=== PATIENT | female | born 1995 | race Caucasian/White ===

== ENCOUNTER 2017-10-02 18:27 | Emergency (ER) | payer BC ==
[2016-09-16 12:38] VITALS: Ht 170.2 cm; Wt 65.8 kg
[~2017-10-02] VITALS: Ht 170.2 cm; Wt 65.8 kg
[~2017-10-02 18:27] MED LIST: ACET-1718 PO; ACET-1966 PO; ACET-3017 PO; ARIP15TA9 PO; BENZ9GEL5 DT; BUPR-474 PO; CALC-521 PO; CEPH-13 PO; CHOL10005 PO; CITA-156 PO; CITA-157 PO; CLON-327 PO; CLON1PAT19 TD; DIPH-740 PO; DOCU-416 PO; FIRST AID ANT28.4 G1 TP; FLUO-202 PO; HYDR-4309 PO; HYDR25CA83 PO; HYDR50CA47 PO; IBUP-56 PO; IBUP200C74 PO; IBUP400T13 PO; IBUP600T22 PO; IBUP800T37 PO; KET10 PO; LAMO200T45 PO; LIOT25TA19 PO; LOR5/325 PO; MULT-1379 PO; NEOM28OI14 TP; NITR-105 PO; NO HOME MEDS; OMEG-11 PO; OMEG10007; ONDA4TAB PO; ONDA4TAB97 PO; PREN-127 PO; PROM-110 PO; RANI-325 PO; TRAZ-156 PO; VALA500T66 PO; [UNRECOGNIZED DRUG - REMARK] PO
--- NOTE | 2017-10-02 18:37 | ER Report ---
History and Physical Time Seen By MD: 18:37 HPI/ROS CHIEF COMPLAINT: 25 weeks , vomiting HISTORY OF PRESENT ILLNESS: 21-year-old female patient presents to emergency room with complaint of vomiting. Patient states she is currently 25 weeks . She denies getting any care during the . Patient states that she has been vomiting all day today, she does have some discomfort in the abdomen. She states that she has not taken any medication for this. Patient states that she has not seen an frame stripper as she has been traveling between [facility]. Patient states that she did have an ultrasound done at 15 weeks but has not heard the results of has not followed up with the provider who performed it. She states that she has been sexually active with multiple partners, for the last 2 months. She states that she never uses protection. She states that she is also been having burning with urination. She denies having any fevers, chills, diarrhea. REVIEW OF SYSTEMS: Respiratory: No cough, no dyspnea. Cardiovascular: No chest pain, no palpitations. Gastrointestinal: As noted above Musculoskeletal: No back pain. Allergies: Coded Allergies: No Known Drug Allergies (Unverified , 10/02/17) Home Meds Active Scripts Promethazine Hcl (PROMETHAZINE HCL) 25 Mg Tablet, 25 MG PO Q8H Y for NAUSEA/ VOMITING, #12 TAB Prov:SARIKA MARIOP 10/02/17 Promethazine Hcl (PROMETHAZINE HCL) 25 Mg Supp.rect, 25 MG RC Q8H, #12 SUPP.RECT Prov:SARIKA MARIO [facility] 10/02/17 Nitrofurantoin Macrocrystal (NITROFURANTOIN) 100 Mg Capsule, 100 MG PO BID, #12 CAPSULE Prov:SARIKA MARIOP 10/02/17 Ondansetron (ZOFRAN ODT) 4 Mg Tab.rapdis, 4 MG PO Q6H Y for NAUSEA/VOMITING, # 20 TAB.LADI Prov:SARIKA MARIO [facility] 10/02/17 Discontinued Reported Medications [place]-3 Fatty Acids/Fish Oil (FISH OIL 1,000 MG CAPSULE) 1 Each Capsule, 1 EACH PO DAILY, CAPSULE 01/06/17 Cholecalciferol (Vitamin D3) (VITAMIN D3) 1,000 Unit Tablet, 1000 UNIT PO QDAY, TAB 01/06/17 Multivits,Th W-Fe,Other Min (THERA-M) 1 Each Tablet, 1 EACH PO QDAY 01/06/17 Hydroxyzine Pamoate (VISTARIL) 25 Mg Capsule, 25-50 MG PO Q12H Y for ANXIETY/ INSOMNIA, CAPSULE 01/06/17 Bupropion Hcl (WELLBUTRIN XL) 300 Mg Tab.er.24h, 300 MG PO QAM, TAB 01/06/17 Past Medical/Surgical History Patient has a past medical history of migraines, reflux, ankle fracture, wrist fracture, meth abuse, marijuana abuse, alcohol abuse, depression, suicidal ideation. Patient has a surgical history of tonsillectomy, cholecystectomy, appendectomy. Patient has a family medical history of cancer, stroke, diabetes. Reviewed Nurses Notes: Yes Hx Smoking: Yes Smoking Status: Current: Every Day Smoker Exposure to Second Hand Smoke?: No Hx Substance Use Disorder: Yes Hx Alcohol Use: Yes Constitutional Vital Sign - Last 24 Hours 10/02/17 10/02/17 10/02/17 10/02/17 18:34 18:36 18:57 19:00 Pulse 107 118 Resp 18 B/P (MAP) 127/81 127/81 (96) 107/71 (83) Pulse Ox 98 94 O2 Delivery Room Air 10/02/17 10/02/17 10/02/17 10/02/17 19:27 19:30 19:57 20:30 Pulse 117 95 B/P (MAP) 114/79 (91) 106/81 (89) Pulse Ox 96 100 97 10/02/17 21:00 Pulse 93 B/P (MAP) 106/72 (83) Pulse Ox 98 Physical Exam General Appearance: The patient is alert, has no immediate need for airway protection and no current signs of toxicity. ENT: Tympanic membranes are pearly-coffey, auditory canals are patent, mucous membranes are moist. Respiratory: Chest is non tender, lungs are clear to auscultation. Cardiac: regular rate and rhythm Gastrointestinal: Abdomen is soft and non tender, no masses, bowel sounds normal. Musculoskeletal: Neck: Neck is supple and non tender. Extremities have full range of motion and are non tender. Skin: No rashes or lesions. DIFFERENTIAL DIAGNOSIS: After history and physical exam differential diagnosis was considered for urinary tract infection, vomiting, gastroenteritis, pyelonephritis. Medical Decision Making Data Points Result Diagram: 2/06/09 [id number] Laboratory Hematology Test 10/02/17 18:40 10/02/17 18:41 10/02/17 21:06 Red Blood Count 4.77 M/uL (4.17-5.56) Mean Corpuscular Volume 86.1 fL (80.0-96.0) Mean Corpuscular Hemoglobin 29.4 pg (26.0-33.0) Mean Corpuscular Hemoglobin Concent 34.1 g/dL (32.0-36.0) Red Cell Distribution Width 14.0 % (11.5-14.5) Mean Platelet Volume 8.0 fL (7.2-11.1) Neutrophils (%) (Auto) 81.9 % (39.4-72.5) Lymphocytes (%) (Auto) 12.3 % (17.6-49.6) Monocytes (%) (Auto) 5.3 % (4.1-12.4) Eosinophils (%) (Auto) 0.3 % (0.4-6.7) Basophils (%) (Auto) 0.2 % (0.3-1.4) Nucleated RBC Relative Count (auto) 0.0 /100WBC Neutrophils # (Auto) 8.0 K/uL (2.0-7.4) Lymphocytes # (Auto) 1.2 K/uL (1.3-3.6) Monocytes # (Auto) 0.5 K/uL (0.3-1.0) Eosinophils # (Auto) 0.0 K/uL (0.0-0.5) Basophils # (Auto) 0.0 K/uL (0.0-0.1) Nucleated RBC Absolute Count (auto) 0.00 K/uL Sodium Level 137 mmol/L (137-145) Potassium Level 3.4 mmol/L (3.5-5.0) Chloride Level 102 mmol/L (98-107) Carbon Dioxide Level 21 mmol/L (22-31) Blood Urea Nitrogen 12 mg/dl (7-18) Creatinine 0.60 mg/dl (0.52-1.04) Glomerular Filtration Rate Calc > 60.0 Random Glucose 82 mg/dl (75-110) Calcium Level 9.1 mg/dl (8.4-10.2) Total Bilirubin 1.5 mg/dl (0.2-1.3) Aspartate Amino Transf (AST/SGOT) 17 U/L (0-35) Alanine Aminotransferase (ALT/SGPT) 27 U/L (0-56) Alkaline Phosphatase 82 U/L (0-126) Total Protein 7.8 gm/dl (6.3-8.2) Albumin 4.1 g/dl (3.5-5.0) HIV (1&2) Antibody Negative (NEGATIVE) Urine Opiates Screen Negative Urine Barbiturates Screen Negative Ur Tricyclic Antidepressants Screen Negative Urine Phencyclidine Screen Negative Urine Amphetamines Screen Positive Urine Benzodiazepines Screen Negative Urine Cocaine Screen Negative Urine Cannabinoids Screen Positive Urine Color Colorless Urine Clarity Clear Urine pH 6.5 pH (4.8-9.5) Urine Specific [place] 1.005 Urine Protein Negative mg/dL (NEGATIVE) Urine Glucose (UA) Negative mg/dL (NEGATIVE) Urine Ketones 40 mg/dL (NEGATIVE) Urine Blood Trace lysed (NEGATIVE) Urine Nitrite Negative (NEGATIVE) Urine Bilirubin Negative (NEGATIVE) Urine Urobilinogen Negative mg/dL (0.2-1.9) Urine Leukocyte Esterase Moderate (NEGATIVE) Urine RBC None /HPF (0-2/HPF) Urine WBC 0-5 /HPF (0-5/HPF) Urine Squamous Epithelial Cells Moderate /LPF (</=FEW) Urine Bacteria Negative /HPF (NONE-FEW) Urine Mucus None /HPF (NONE-FEW) Chemistry Test 10/02/17 18:40 10/02/17 18:41 10/02/17 21:06 White Blood Count 9.8 k/uL (4.5-11.0) Red Blood Count 4.77 M/uL (4.17-5.56) Hemoglobin 14.0 g/dL (12.0-16.0) Hematocrit 41.1 % (34.0-47.0) Mean Corpuscular Volume 86.1 fL (80.0-96.0) Mean Corpuscular Hemoglobin 29.4 pg (26.0-33.0) Mean Corpuscular Hemoglobin Concent 34.1 g/dL (32.0-36.0) Red Cell Distribution Width 14.0 % (11.5-14.5) Platelet Count 210 K/uL (150-450) Mean Platelet Volume 8.0 fL (7.2-11.1) Neutrophils (%) (Auto) 81.9 % (39.4-72.5) Lymphocytes (%) (Auto) 12.3 % (17.6-49.6) Monocytes (%) (Auto) 5.3 % (4.1-12.4) Eosinophils (%) (Auto) 0.3 % (0.4-6.7) Basophils (%) (Auto) 0.2 % (0.3-1.4) Nucleated RBC Relative Count (auto) 0.0 /100WBC Neutrophils # (Auto) 8.0 K/uL (2.0-7.4) Lymphocytes # (Auto) 1.2 K/uL (1.3-3.6) Monocytes # (Auto) 0.5 K/uL (0.3-1.0) Eosinophils # (Auto) 0.0 K/uL (0.0-0.5) Basophils # (Auto) 0.0 K/uL (0.0-0.1) Nucleated RBC Absolute Count (auto) 0.00 K/uL Glomerular Filtration Rate Calc > 60.0 Calcium Level 9.1 mg/dl (8.4-10.2) Total Bilirubin 1.5 mg/dl (0.2-1.3) Aspartate Amino Transf (AST/SGOT) 17 U/L (0-35) Alanine Aminotransferase (ALT/SGPT) 27 U/L (0-56) Alkaline Phosphatase 82 U/L (0-126) Total Protein 7.8 gm/dl (6.3-8.2) Albumin 4.1 g/dl (3.5-5.0) HIV (1&2) Antibody Negative (NEGATIVE) Urine Opiates Screen Negative Urine Barbiturates Screen Negative Ur Tricyclic Antidepressants Screen Negative Urine Phencyclidine Screen Negative Urine Amphetamines Screen Positive Urine Benzodiazepines Screen Negative Urine Cocaine Screen Negative Urine Cannabinoids Screen Positive Urine Color Colorless Urine Clarity Clear Urine pH 6.5 pH (4.8-9.5) Urine Specific [place] 1.005 Urine Protein Negative mg/dL (NEGATIVE) Urine Glucose (UA) Negative mg/dL (NEGATIVE) Urine Ketones 40 mg/dL (NEGATIVE) Urine Blood Trace lysed (NEGATIVE) Urine Nitrite Negative (NEGATIVE) Urine Bilirubin Negative (NEGATIVE) Urine Urobilinogen Negative mg/dL (0.2-1.9) Urine Leukocyte Esterase Moderate (NEGATIVE) Urine RBC None /HPF (0-2/HPF) Urine WBC 0-5 /HPF (0-5/HPF) Urine Squamous Epithelial Cells Moderate /LPF (</=FEW) Urine Bacteria Negative /HPF (NONE-FEW) Urine Mucus None /HPF (NONE-FEW) Toxicology Test 10/02/17 18:41 Urine Opiates Screen Negative Urine Barbiturates Screen Negative Ur Tricyclic Antidepressants Screen Negative Urine Phencyclidine Screen Negative Urine Amphetamines Screen Positive Urine Benzodiazepines Screen Negative Urine Cocaine Screen Negative Urine Cannabinoids Screen Positive Urinalysis Test 10/02/17 21:06 Urine Color Colorless Urine Clarity Clear Urine pH 6.5 pH (4.8-9.5) Urine Specific [place] 1.005 Urine Protein Negative mg/dL (NEGATIVE) Urine Glucose (UA) Negative mg/dL (NEGATIVE) Urine Ketones 40 mg/dL (NEGATIVE) Urine Blood Trace lysed (NEGATIVE) Urine Nitrite Negative (NEGATIVE) Urine Bilirubin Negative (NEGATIVE) Urine Urobilinogen Negative mg/dL (0.2-1.9) Urine Leukocyte Esterase Moderate (NEGATIVE) Urine RBC None /HPF (0-2/HPF) Urine WBC 0-5 /HPF (0-5/HPF) Urine Squamous Epithelial Cells Moderate /LPF (</=FEW) Urine Bacteria Negative /HPF (NONE-FEW) Urine Mucus None /HPF (NONE-FEW) ED Course/Re-evaluation ED Course Patient was admitted to exam room, history and physical were obtained. Differential diagnoses were considered. Patient was tested for chlamydia, gonorrhea, HIV, CBC, CMP, urinalysis were obtained. Urinalysis showed 80 ketones and 100 white cells per high-power field. We will go ahead and culture the urine, patient received a liter of normal saline. A CBC and CMP were unremarkable. Patient states she is currently 25 weeks . She also states that she has had 4 sexual partners in the past 2 months and has not used any condoms. A drug screen was also done which was positive for meth and cannabis. I discussed the case with Dr. Valdes, DATA GOVERNANCE CONSULTANT, who recommended doing an RPR, hep B surface antigen and a type and screen. Also labs were added on. Patient received a second liter of normal saline and then a urinalysis obtained. Patient had decrease in ketones to 40, also had decrease in the number of white blood cells. Patient states she is feeling better is ready to go home. She did receive a dose of Zofran and then when she had persistent vomiting received dose of Phenergan. We'll go ahead and discharge patient home with oral Phenergan and oral Zofran. She is to follow-up with OB on Wednesday. I would like her having fluids with her at all times so that she can drink more fluids. Would also like her to start taking vitamins. I discussed this with the patient and her friend and they verbalized understanding and agreement. We'll go ahead and discharge the patient home at this time. Decision to Disposition Date: Oct 02, 2017 Decision to Disposition Time: 21:28 Depart Departure Latest Vital Signs Vital Signs Date Time Temp Pulse Resp B/P (MAP) Pulse Ox O2 Delivery O2 Flow Rate FiO2 10/02/17 21:00 93 106/72 (83) 98 10/02/17 18:34 18 Room Air Impression: Primary Impression: Urinary tract infection affecting Additional Impressions: Cannabis abuse Methamphetamine abuse Vomiting affecting Condition: Improved Disposition: HOME OR SELF-CARE Referrals: CYRUS DOVE MD (PCP) New Scripts Promethazine Hcl (PROMETHAZINE HCL) 25 Mg Tablet 25 MG PO Q8H Y for NAUSEA/VOMITING, #12 TAB Prov: SARIKA MARIO 10/02/17 Promethazine Hcl (PROMETHAZINE HCL) 25 Mg Supp.rect 25 MG RC Q8H, #12 SUPP.RECT Prov: SARIKA MARIO 10/02/17 Nitrofurantoin Macrocrystal (NITROFURANTOIN) 100 Mg Capsule 100 MG PO BID, #12 CAPSULE Prov: SARIKA MARIO 10/02/17 Ondansetron (ZOFRAN ODT) 4 Mg Tab.rapdis 4 MG PO Q6H Y for NAUSEA/VOMITING, #20 TAB.LADI Prov: SARIKA MARIO 10/02/17 Patient Instructions: Urinary Tract Infection in (ED) Additional Instructions: Increase fluid intake, have water bottle with you all of the time and take frequent sips. Get plenty of rest. Follow up with OB on Wednesday. Start taking Vitamins, those can be bought over the counter. Take the medication as needed for vomiting. Avoid Meth and Marijuana. Return to the ER if condition worsens. Problem Qualifiers SARIKA MARIO Oct 02, 2017 18:37
[2017-10-02] MEDS ORDERED: NS(*) 0.9% 1000 ML BAG 1,000 ML IV ONE ×2 (18:45→20:05)
[2017-10-02 18:56] LABS: PLATELET COUNT, AUTOMATED 210 K/uL (150-450)
[2017-10-02] MEDS ORDERED: ONDANSETRON 4 MG/2 ML VIAL IVP ONE (19:00)
[2017-10-02] MEDS ORDERED: NITROFURANTOIN MONO 100 MG PO ONE ×2 (20:05→21:30)
[2017-10-02] MEDS ORDERED: PROMETHAZINE 25 MG/ML 1 ML AMP IVP ONE (20:15)
[2017-10-02] MEDS ORDERED: PROM-110 PO (21:26)
[2017-10-02] MEDS ORDERED: PROM25SU9 RC (21:26)
[2017-10-02] MEDS ORDERED: NITR-1 PO (21:26)
[2017-10-02] MEDS ORDERED: ONDA4TAB PO (21:26)
[2017-10-02] MEDS ORDERED: PROMETHAZINE HCL 25 MG TAB TH 2 TAB/BOTTLE PO ONE (21:30)
[2017-10-02] MEDS ORDERED: ONDANSETRON 4 MG ODT TH SL ONE (21:30)
[2017-10-02 21:39] VITALS: BP 128/82
== END 2017-10-02 21:43 | disposition home or self-care (01) ==
LOC: ER 18:37
DX: O23.42 Unspecified infection of urinary tract in pregnancy, second trimester (principal); F12.10 Cannabis abuse, uncomplicated; F15.10 Other stimulant abuse, uncomplicated; R11.10 Vomiting, unspecified
CPT/HCPCS: 36415; 80305; 81001; 85025; 86592; 86703; 86850; 86900; 86901; 87088; 87340; 87491; 87591; 96374; 96375; 99284; J2405; J2550; J7030; S0119; 82040; 82247; 82310; 82374; 82435; 82565; 82947; 84075; 84132; 84155; 84295; 84450; 84460; 84520

== ENCOUNTER 2017-10-06 15:05 | Emergency (ER) | payer BC ==
[2016-09-16 12:38] VITALS: Ht 170.2 cm; Wt 72.6 kg
[~2017-10-06] VITALS: Ht 170.2 cm; Wt 72.6 kg
[~2017-10-06 15:05] MED LIST changes: +NITR-1 PO; +PROM25SU9 RC
--- NOTE | 2017-10-06 15:13 | ER Report ---
History and Physical Time Seen By : 15:08 HPI/ROS CHIEF COMPLAINT: Swelling of right upper arm HISTORY OF PRESENT ILLNESS: 21-year-old female patient presents to emergency room with complaint of swelling to the right upper arm. Patient was seen here in the emergency room on Wednesday, had an IV in the right arm. She states that since then she has been having swelling. She states that has been tender, she describes it as a throbbing sensation. She denies any numbness tingling to the fingers. She states she has not taken any medication for this. She states that she is 25 weeks . REVIEW OF SYSTEMS: Respiratory: No cough, no dyspnea. Cardiovascular: No chest pain, no palpitations. Gastrointestinal: No vomiting, no abdominal pain. Musculoskeletal: No back pain. Allergies: Coded Allergies: No Known Drug Allergies (Unverified , 10/06/17) Home Meds Active Scripts Ibuprofen (IBUPROFEN) 800 Mg Tablet, 1 TAB PO Q8H, #21 TAB Prov:SARIKA MARIOP 10/06/17 Promethazine Hcl (PROMETHAZINE HCL) 25 Mg Tablet, 25 MG PO Q8H Y for NAUSEA/ VOMITING, #12 TAB Prov:SARIKA MARIO 10/02/17 Promethazine Hcl (PROMETHAZINE HCL) 25 Mg Supp.rect, 25 MG RC Q8H, #12 SUPP.RECT Prov:SARIKA MARIO 10/02/17 Nitrofurantoin Macrocrystal (NITROFURANTOIN) 100 Mg Capsule, 100 MG PO BID, #12 CAPSULE Prov:SARIKA MARIO 10/02/17 Ondansetron (ZOFRAN ODT) 4 Mg Tab.rapdis, 4 MG PO Q6H Y for NAUSEA/VOMITING, # 20 TAB.LADI Prov:SARIKA MARIO 10/02/17 Discontinued Reported Medications [place]-3 Fatty Acids/Fish Oil (FISH OIL 1,000 MG CAPSULE) 1 Each Capsule, 1 EACH PO DAILY, CAPSULE 01/06/17 Cholecalciferol (Vitamin D3) (VITAMIN D3) 1,000 Unit Tablet, 1000 UNIT PO QDAY, TAB 01/06/17 Multivits,Th W-Fe,Other Min (THERA-M) 1 Each Tablet, 1 EACH PO QDAY 01/06/17 Hydroxyzine Pamoate (VISTARIL) 25 Mg Capsule, 25-50 MG PO Q12H Y for ANXIETY/ INSOMNIA, CAPSULE 01/06/17 Bupropion Hcl (WELLBUTRIN XL) 300 Mg Tab.er.24h, 300 MG PO QAM, TAB 01/06/17 Past Medical/Surgical History Patient has a past medical history of migraines, reflux, ankle fracture, wrist fracture, meth abuse, marijuana abuse, alcohol abuse, depression, suicidal ideation. Patient has a surgical history of tonsillectomy, cholecystectomy, appendectomy. Patient has a family medical history of cancer, stroke, diabetes. Hx Smoking: Yes Smoking Status: Current: Every Day Smoker Exposure to Second Hand Smoke?: No Hx Substance Use Disorder: Yes (METH, MARIJUANA) Hx Alcohol Use: Yes Constitutional Vital Sign - Last 24 Hours 10/06/17 10/06/17 10/06/17 10/06/17 15:09 16:27 16:45 17:12 Temp 98.9 Pulse 104 90 Resp 20 B/P (MAP) 111/60 104/63 (77) 115/75 (88) Pulse Ox 97 97 O2 Delivery Room Air 10/06/17 17:14 Pulse 89 B/P (MAP) 115/75 (88) Pulse Ox 95 O2 Delivery Room Air Physical Exam General Appearance: The patient is alert, has no immediate need for airway protection and no current signs of toxicity. ENT: Tympanic membranes are pearly-coffey, auditory canals are patent, mucous membranes are moist. Respiratory: Chest is non tender, lungs are clear to auscultation. Cardiac: regular rate and rhythm Gastrointestinal: Abdomen is soft and non tender, no masses, bowel sounds normal. Musculoskeletal: Neck: Neck is supple and non tender. Extremities have full range of motion and are non tender. Patient does have swelling to the right upper extremity, she does have some induration to the vein is palpated in the arm. Skin: No rashes or lesions. DIFFERENTIAL DIAGNOSIS: After history and physical exam differential diagnosis was considered for phlebitis, DVT, swelling. Medical Decision Making Data Points Laboratory Hematology Test 10/06/17 15:25 Urine Color Straw Urine Clarity Clear Urine pH 7.0 pH (4.8-9.5) Urine Specific [place] 1.005 Urine Protein Negative mg/dL (NEGATIVE) Urine Glucose (UA) Negative mg/dL (NEGATIVE) Urine Ketones Negative mg/dL (NEGATIVE) Urine Blood Negative (NEGATIVE) Urine Nitrite Negative (NEGATIVE) Urine Bilirubin Negative (NEGATIVE) Urine Urobilinogen Negative mg/dL (0.2-1.9) Urine Leukocyte Esterase Small (NEGATIVE) Urine RBC 1 /HPF (0-2/HPF) Urine WBC 1 /HPF (0-5/HPF) Urine Squamous Epithelial Cells Many /LPF (</=FEW) Urine Bacteria Few /HPF (NONE-FEW) Urine Mucus None /HPF (NONE-FEW) Urine Opiates Screen Negative Urine Barbiturates Screen Negative Ur Tricyclic Antidepressants Screen Negative Urine Phencyclidine Screen Negative Urine Amphetamines Screen Negative Urine Benzodiazepines Screen Negative Urine Cocaine Screen Negative Urine Cannabinoids Screen Positive Chemistry Test 10/06/17 15:25 Urine Color Straw Urine Clarity Clear Urine pH 7.0 pH (4.8-9.5) Urine Specific [place] 1.005 Urine Protein Negative mg/dL (NEGATIVE) Urine Glucose (UA) Negative mg/dL (NEGATIVE) Urine Ketones Negative mg/dL (NEGATIVE) Urine Blood Negative (NEGATIVE) Urine Nitrite Negative (NEGATIVE) Urine Bilirubin Negative (NEGATIVE) Urine Urobilinogen Negative mg/dL (0.2-1.9) Urine Leukocyte Esterase Small (NEGATIVE) Urine RBC 1 /HPF (0-2/HPF) Urine WBC 1 /HPF (0-5/HPF) Urine Squamous Epithelial Cells Many /LPF (</=FEW) Urine Bacteria Few /HPF (NONE-FEW) Urine Mucus None /HPF (NONE-FEW) Urine Opiates Screen Negative Urine Barbiturates Screen Negative Ur Tricyclic Antidepressants Screen Negative Urine Phencyclidine Screen Negative Urine Amphetamines Screen Negative Urine Benzodiazepines Screen Negative Urine Cocaine Screen Negative Urine Cannabinoids Screen Positive Toxicology Test 10/06/17 15:25 Urine Opiates Screen Negative Urine Barbiturates Screen Negative Ur Tricyclic Antidepressants Screen Negative Urine Phencyclidine Screen Negative Urine Amphetamines Screen Negative Urine Benzodiazepines Screen Negative Urine Cocaine Screen Negative Urine Cannabinoids Screen Positive Urinalysis Test 10/06/17 15:25 Urine Color Straw Urine Clarity Clear Urine pH 7.0 pH (4.8-9.5) Urine Specific [place] 1.005 Urine Protein Negative mg/dL (NEGATIVE) Urine Glucose (UA) Negative mg/dL (NEGATIVE) Urine Ketones Negative mg/dL (NEGATIVE) Urine Blood Negative (NEGATIVE) Urine Nitrite Negative (NEGATIVE) Urine Bilirubin Negative (NEGATIVE) Urine Urobilinogen Negative mg/dL (0.2-1.9) Urine Leukocyte Esterase Small (NEGATIVE) Urine RBC 1 /HPF (0-2/HPF) Urine WBC 1 /HPF (0-5/HPF) Urine Squamous Epithelial Cells Many /LPF (</=FEW) Urine Bacteria Few /HPF (NONE-FEW) Urine Mucus None /HPF (NONE-FEW) EKG/Imaging Imaging Venous Doppler ultrasound right upper extremity Indication: Right arm swelling. Patient 26 weeks . Recent IV in the right arm. Comparison: None available. Findings: There is normal compressibility and blood flow of the right internal jugular vein. There is normal blood flow to the right subclavian vein. There is normal compressibility and blood flow identified within the right axillary vein, brachial veins and cephalic veins. The right basilic vein from the mid upper arm to the midforearm does show intraluminal thrombus with poor compressibility and blood flow. Subcutaneous tissues are unremarkable. IMPRESSION: 1. Positive thrombus in the right basilic vein from mid upper arm to the mid forearm. The remaining veins of the right arm are clear. I called report to SARIKA MARIO at 10/06/2017 4:30 PM. Report Dictated By: Oracio Arita at 10/06/2017 4:26 PM Report E-Signed By: Oracio Arita at 10/06/2017 4:31 PM ED Course/Re-evaluation ED Course Patient was admitted to exam room, history and physical were obtained. Differential diagnoses were considered. On examination patient does have swelling and induration to the medial aspect of the right upper arm. An ultrasound was done of the right upper arm, urinalysis was obtained. Urine was improved, with no leukocyte esterase, patient was positive for cannabis. Ultrasound did show a blood clot in the basilic vein. Blood clot did go from the upper arm to the mid forearm. I discussed the case with Dr. Sanders, c d reactor operator. His recommendation with the clot being in a superficial vein was to go ahead and treat conservatively with warm compress, elevation and NSAIDs. We discussed the NSAIDs, with the patient being 26 weeks she can take that through 28 weeks. We will have her on that for the next one week. She is to follow-up with c d reactor operator in the clinic. I discussed this with the patient who verbalized understanding and agreement with plan. Decision to Disposition Date: Oct 06, 2017 Decision to Disposition Time: 17:07 Depart Departure Latest Vital Signs Vital Signs Date Time Temp Pulse Resp B/P (MAP) Pulse Ox O2 Delivery O2 Flow Rate FiO2 10/06/17 17:14 89 115/75 (88) 95 Room Air 10/06/17 15:09 98.9 20 Impression: Primary Impression: Thrombophlebitis during Condition: Improved Disposition: HOME OR SELF-CARE Referrals: CYRUS DOVE MD (PCP) New Scripts Ibuprofen (IBUPROFEN) 800 Mg Tablet 1 TAB PO Q8H, #21 TAB Prov: SARIKA MARIO 10/06/17 Patient Instructions: Superficial Thrombophlebitis (ED) Additional Instructions: Elevate right arm when not active. Take Ibuprofen as prescribed. Follow up with OB, call to make an appointment. Apply warm compresses when not active. Return to the ER if condition worsens. Problem Qualifiers Primary Impression: Thrombophlebitis during Trimester: second trimester Qualified Codes: O22.22 - Superficial thrombophlebitis in , second trimester SARIKA MARIO Oct 06, 2017 15:13
--- NOTE | 2017-10-06 16:33 | RADIOLOGY IMAGING REPORT ---
FACILITY: [facility] PATIENT NAME: Lakisha Doran : 1995 MR: [id number] V: [id number] EXAM DATE: ORDERING PHYSICIAN: SARIKA MARIO TECHNOLOGIST: Location: [facility] Patient: Lakisha Doran : 1995 Visit/Account:[id number] Date of Sevice: 10/06/2017 Venous Doppler ultrasound right upper extremity Indication: Right arm swelling. Patient 26 weeks . Recent IV in the right arm. Comparison: None available. Findings: There is normal compressibility and blood flow of the right internal jugular vein. There is normal blood flow to the right subclavian vein. There is normal compressibility and blood flow identified within the right axillary vein, brachial ve ins and cephalic veins. The right basilic vein from the mid upper arm to the midforearm does show intraluminal thrombus with poor compressibility and blood flow. Subcutaneous tissues are unremarkable. IMPRESSION: 1. Positive thrombus in the right basilic vein from mid upper arm to the mid forearm. The remaining veins of the right arm are clear. I called report to SARIKA MARIO at 10/06/2017 4:30 PM. Report Dictated By: Oracio Arita at 10/06/2017 4:26 PM Report E-Signed By: Oracio Arita at 10/06/2017 4:31 PM WSN:[id number]
[2017-10-06] MEDS ORDERED: IBUP800T37 PO (17:08)
[2017-10-06 17:14] VITALS: BP 115/75
== END 2017-10-06 17:14 | disposition home or self-care (01) ==
LOC: ER 15:12
DX: O22.22 Superficial thrombophlebitis in pregnancy, second trimester (principal); Z3A.25 25 weeks gestation of pregnancy; F12.90 Cannabis use, unspecified, uncomplicated
CPT/HCPCS: 80305; 81001; 99283